=== PATIENT | male | born 1985 | race Hispanic/Latino ===

== ENCOUNTER 2019-12-21 21:29 | Emergency (ER) | payer OTHER ==
[~2019-12-21] VITALS: Ht 172.7 cm; Wt 81.7 kg
== END 2019-12-21 22:33 | disposition home or self-care (01) ==
LOC: ED 21:29
PROC: 0VQSXZZ Repair Penis, External Approach (ICD-10-PCS; principal; 2019-12-21)
DX: S31.21XA Laceration without foreign body of penis, initial encounter (principal); F17.200 Nicotine dependence, unspecified, uncomplicated; X58.XXXA Exposure to other specified factors, initial encounter
CPT/HCPCS: 12001; 99282